=== PATIENT | female | born 1980 | race Caucasian/White ===

== ENCOUNTER 2017-06-03 09:44 | Emergency (ER) | payer SELFPAY ==
[2017-06-03 09:54] VITALS: TEMP 98.4
[2017-06-03] MEDS ORDERED: INSULIN DETEMIR 100 UNITS/ML PEN SUBCU ONE (10:03)
[2017-06-03] MEDS ORDERED: SODIUM CHLORIDE 0.9% 1000ML 1,000 ML IVS ONE (10:50)
[2017-06-03] MEDS ORDERED: INSULIN, REG.(HUMAN) 100 U/ML VIAL IV ONE (10:50)
--- NOTE | 2017-06-03 13:27 | ED.PDOC ---
History of Present Illness - General Chief Complaint: Diabetic Complaint Stated Complaint: Elevated blood sugar Time Seen by Provider: 06/03/17 09:57 Source: patient Exam Limitations: no limitations - History of Present Illness Initial Comments: The patient is a 36-year-old female presenting to the emergency room secondary to hyperglycemia and symptoms of generalized fatigue and myalgias as well as some mild nausea related to it. She has been increasing her insulin by her insulin pump over the last couple of days to help compensate for the hyperglycemia. Hyperglycemia is most likely due to a steroid injection that she received in her left shoulder on Monday. She has not been having any symptoms of any specific illness otherwise. Timing/Duration: unsure Severity: moderate Improving Factors: nothing Worsening Factors: nothing Associated Symptoms: denies symptoms Allergies/Adverse Reactions: Allergies Phenytoin [From Dilantin] Allergy (Verified 04/26/15 17:32) Rash Valproic Acid [From Depakote] Adverse Reaction (Verified 06/03/17 09:55) Other Causes alopecia Home Medications: Ambulatory Orders Insulin Infusion Pump IV DAILY 12/19/14 Lamotrigine [Lamictal] 100 mg PO DAILY 12/19/14 Gabapentin [Neurontin] 300 mg PO TID 06/03/17 Insulin Glargine [Toujeo Solostar] 20 unit SC DAILY #1 inj 06/03/17 Review of Systems - Review of Systems Constitutional: States: malaise EENTM: States: no symptoms reported Respiratory: States: no symptoms reported Cardiology: States: no symptoms reported Gastrointestinal/Abdominal: States: nausea. Denies: vomiting Genitourinary: States: no symptoms reported Musculoskeletal: States: no symptoms reported Skin: States: no symptoms reported Neurological: States: no symptoms reported Endocrine: States: increased thirst All other Systems: No Change from Baseline Past Medical History (General) - Patient Medical History Hx Seizures: Yes Hx Stroke: Yes - 2016 Hx Dementia: No Hx Asthma: No Hx of COPD: No Hx Cardiac Disorders: No Hx Congestive Heart Failure: No Hx Pacemaker: No Hx Hypertension: No Hx Thyroid Disease: No Hx Diabetes: Yes Hx Gastroesophageal Reflux: No Hx Renal Disease: No Hx Cancer: No Hx of HIV: No Hx Hepatitis C: No Hx MRSA: No Surgical History: other - Vaccination History Hx Tetanus, Diphtheria Vaccination: No Hx Influenza Vaccination: Yes - 2016 Hx Pneumococcal Vaccination: No - Social History Hx Tobacco Use: Yes Hx Chewing Tobacco Use: No Hx Alcohol Use: Yes - WHISKEY WEEKLY Hx Substance Use: No Hx Substance Use Treatment: No Hx Depression: Yes Hx Physical Abuse: No Hx Emotional Abuse: No Hx Suspected Abuse: No - Female History Patient is a Female of Child Bearing Age (10 -59 yrs old): Yes Patient : No Family Medical History - Family History Mother Family History: No Known Living Status: Still Living Physical Exam - Physical Exam General Appearance: Alert, Anxious, No apparent distress Eye Exam: bilateral normal Ears, Nose, Throat: hearing grossly normal, normal ENT inspection, normal pharynx Neck: non-tender, full range of motion, supple Respiratory: lungs clear, normal breath sounds, no respiratory distress, no accessory muscle use Cardiovascular/Chest: normal peripheral pulses, regular rate, rhythm, no edema Peripheral Pulses: radial,right: 2+, radial,left: 2+, dorsalis pedis,right: 2+, dorsalis pedis,left: 2+ Gastrointestinal/Abdominal: non tender, soft Rectal Exam: deferred Back Exam: normal inspection, no CVA tenderness, no vertebral tenderness Extremity: normal range of motion, non-tender, normal inspection, no pedal edema , normal capillary refill Neurologic: lacquer sizer II-XII nml as tested, alert, normal mood/affect, oriented x 3 Skin Exam: normal color Comments: Vital Signs - 24 hr 06/03/17 09:47 Temperature 98.4 F Pulse Rate [ 109 H Left Radial] Respiratory 20 Rate Blood Pressure 121/82 [Left Arm] O2 Sat by Pulse 98 Oximetry Progress - Progress Progress: 06/03/17 13:28 the patient is a 36-year-old female presenting to emergency room secondary to hyperglycemia with her insulin dependent diabetes. This is likely related to a steroid injection she received earlier in the week as is the leukocytosis noted on lab work. The patient received a liter of IV fluids. She does not appear to be in DKA. The patient will be written for Toujeo to start at 20 units each morning. she will also likely need to increase her bolus dosing by approximately 50% at least for the next few days. The longer- term insulin can be gradually decreased over the coming week to couple of weeks as her blood sugars returned to normal. she needs to keep herself well- hydrated. No clinical evidence of any infection found at this time. She should follow-up with her primary care doctor in a couple of days for reevaluation. - Results/Orders Results/Orders: 06/03/17 11:13 Flu A+B (PCR) [INFLUENZA A & B BY PCR] Stat negative. Laboratory Results - last 24 hr 06/03/17 06/03/17 06/03/17 10:15 10:15 10:15 WBC 20.7 H* RBC 5.07 Hgb 16.2 H Hct 48.9 H MCV 96.4 MCH 31.9 H MCHC 33.2 RDW 13.1 Plt Count 277 MPV 9.1 Absolute Neuts (auto) Not Reportable Absolute Lymphs (auto) Not Reportable Absolute Monos (auto) Not Reportable Absolute Eos (auto) Not Reportable Neutrophils % Not Reportable Neutrophils % (Manual) 75.0 Lymphocytes % Not Reportable Lymphocytes % (Manual) 12.0 Monocytes % Not Reportable Monocytes % (Manual) 8.0 Eosinophils % Not Reportable Basophils % Not Reportable Band Neutrophils 5.0 Sodium 134 L Potassium 5.1 H Chloride 97 L Carbon Dioxide 23 Anion Gap 19.1 H BUN 19 H Creatinine 1.00 BUN/Creatinine Ratio 19.0 POC Glucose > 400 H* Random Glucose 603 H* Serum Osmolality 299.4 H Calcium 9.1 Total Bilirubin 1.2 H AST 13 ALT 17 Alkaline Phosphatase 99 Serum Total Protein 6.9 Albumin 4.5 Globulin 2.4 Albumin/Globulin Ratio 1.9 Urine Color Urine Appearance Urine pH Ur Specific [place] Urine Protein Urine Glucose (UA) Urine Ketones Urine Blood Urine Nitrite Urine Bilirubin Urine Urobilinogen Ur Leukocyte Esterase Urine RBC Urine WBC Ur Epithelial Cells Urine Bacteria 06/03/17 06/03/17 06/03/17 10:20 12:20 13:20 WBC RBC Hgb Hct MCV MCH MCHC RDW Plt Count MPV Absolute Neuts (auto) Absolute Lymphs (auto) Absolute Monos (auto) Absolute Eos (auto) Neutrophils % Neutrophils % (Manual) Lymphocytes % Lymphocytes % (Manual) Monocytes % Monocytes % (Manual) Eosinophils % Basophils % Band Neutrophils Sodium Potassium Chloride Carbon Dioxide Anion Gap BUN Creatinine BUN/Creatinine Ratio POC Glucose 361 H 366 H Random Glucose Serum Osmolality Calcium Total Bilirubin AST ALT Alkaline Phosphatase Serum Total Protein Albumin Globulin Albumin/Globulin Ratio Urine Color Yellow Urine Appearance Clear Urine pH 6.0 Ur Specific [place] 1.010 Urine Protein Negative Urine Glucose (UA) 500 H Urine Ketones 40 H Urine Blood Trace-lysed H Urine Nitrite Negative Urine Bilirubin Negative Urine Urobilinogen 0.2 Ur Leukocyte Esterase Negative Urine RBC 0-1 Urine WBC 0 Ur Epithelial Cells 1-3 Urine Bacteria 0 Departure - Departure Clinical Impression: Hyperglycemia Disposition: Discharge to Home or Self Care Condition: Fair Departure Forms: ED Discharge - Pt. Copy, Patient Portal Self Enrollment Instructions: DI for Diabetes Type 1 -- Adult Diet: diabetic diet Activity: increase activity as tolerated Referrals: Víctor Harper MD [Primary Care Provider] - 1-5 Days Prescriptions: Insulin Glargine [Toujeo Solostar] 20 unit SC DAILY #1 inj Home Medications: Ambulatory Orders Insulin Infusion Pump IV DAILY 12/19/14 Lamotrigine [Lamictal] 100 mg PO DAILY 12/19/14 Gabapentin [Neurontin] 300 mg PO TID 06/03/17 Insulin Glargine [Toujeo Solostar] 20 unit SC DAILY #1 inj 06/03/17 Additional Instructions: the patient is a 36-year-old female presenting to emergency room secondary to hyperglycemia with her insulin dependent diabetes. This is likely related to a steroid injection she received earlier in the week as is the leukocytosis noted on lab work. The patient received a liter of IV fluids. She does not appear to be in DKA. The patient will be written for Toujeo to start at 20 units each morning. she will also likely need to increase her bolus dosing by approximately 50% at least for the next few days. The longer- term insulin can be gradually decreased over the coming week to couple of weeks as her blood sugars returned to normal. she needs to keep herself well- hydrated. No clinical evidence of any infection found at this time. She should follow-up with her primary care doctor in a couple of days for reevaluation.
[2017-06-03 13:43] VITALS: BP 113/76; O2SAT 97
[2017-06-04] MEDS ORDERED: INSULIN, REG.(HUMAN) 100 U/ML VIAL ONE (11:16)
[2017-06-04] MEDS ORDERED: SODIUM CHL 0.9% 250ML (AVIVA) 250 ML IVPB ONE (11:16)
[2017-06-04] MEDS ORDERED: CALCIUM GLUCONATE INJ 1 GM/10 ML VIAL ONE ×2 (23:43)
== END 2017-06-03 13:43 | disposition home or self-care (01) ==
LOC: ER 09:44
DX: E11.65 Type 2 diabetes mellitus with hyperglycemia (principal); Z79.4 Long term (current) use of insulin; Z96.41 Presence of insulin pump (external) (internal); Z86.73 Personal history of transient ischemic attack (TIA), and cerebral infarction without residual deficits
CPT/HCPCS: 36415; 36416; 80053; 81001; 82948; 85025; 87502; J1815; J7030

== ENCOUNTER 2017-06-04 07:06 | Inpatient (IN) | payer SELFPAY ==
[2017-06-04] MEDS ORDERED: SODIUM CHLORIDE 0.9% 1000ML 2,000 ML IVS ONE (07:25)
[2017-06-04] MEDS ORDERED: PROMETHAZINE HCL INJ 12.5 MG in SODIUM CHLORIDE 0.9% 50ML 50 ML IVPB ONE (07:25)
[2017-06-04] MEDS ORDERED: INSULIN, REG.(HUMAN) 100 U/ML VIAL IV ONE (07:25)
--- NOTE | 2017-06-04 07:27 | ED.PDOC ---
History of Present Illness - General Chief Complaint: Diabetic Complaint Stated Complaint: Bodyaches, elevated BS, dry mouth Time Seen by Provider: 06/04/17 07:19 Source: patient Exam Limitations: no limitations - Additional Information: 36 year old known IDDM type 1 since age 11 presents with nausea vomiting weakness since Monday She was seen by her physician last week received a shot of steroids Seen here yesterday work up showed a WBC of 20 K rest of the labs were normal Leucocytosis was thougtto be due to the Steroid she received 2 days ago Today she returns as her symptoms are not any better - History of Present Illness Timing/Duration: 24 hours Severity: moderate Improving Factors: nothing Worsening Factors: nothing Associated Symptoms: denies symptoms, nausea/vomiting, weakness Allergies/Adverse Reactions: Allergies Phenytoin [From Dilantin] Allergy (Verified 06/04/17 07:21) Rash Valproic Acid [From Depakote] Adverse Reaction (Verified 06/04/17 07:21) Other Causes alopecia Home Medications: Ambulatory Orders Insulin Infusion Pump IV DAILY 12/19/14 Lamotrigine [Lamictal] 100 mg PO DAILY 12/19/14 Gabapentin [Neurontin] 300 mg PO TID 06/03/17 Insulin Glargine [Toujeo Solostar] 20 unit SC DAILY #1 inj 06/03/17 Review of Systems - Review of Systems Constitutional: States: see HPI EENTM: States: no symptoms reported Respiratory: States: no symptoms reported Cardiology: States: no symptoms reported Gastrointestinal/Abdominal: States: no symptoms reported, see HPI, nausea, vomiting Genitourinary: States: no symptoms reported Musculoskeletal: States: no symptoms reported Skin: States: no symptoms reported Neurological: States: no symptoms reported Endocrine: States: see HPI Hematologic/Lymphatic: States: no symptoms reported All other Systems: Reviewed and Negative Past Medical History (General) - Patient Medical History Hx Seizures: Yes Hx Stroke: Yes - 2016 Hx Dementia: No Hx Asthma: No Hx of COPD: No Hx Cardiac Disorders: No Hx Congestive Heart Failure: No Hx Pacemaker: No Hx Hypertension: No Hx Thyroid Disease: No Hx Diabetes: Yes Hx Gastroesophageal Reflux: No Hx Renal Disease: No Hx Cancer: No Hx of HIV: No Hx Hepatitis C: No Hx MRSA: No Surgical History: other - Vaccination History Hx Tetanus, Diphtheria Vaccination: No Hx Influenza Vaccination: Yes - 2017 Hx Pneumococcal Vaccination: No - Social History Hx Tobacco Use: Yes Hx Chewing Tobacco Use: No Hx Alcohol Use: Yes - WHISKEY WEEKLY Hx Substance Use: No Hx Substance Use Treatment: No Hx Depression: Yes Hx Physical Abuse: No Hx Emotional Abuse: No Hx Suspected Abuse: No - Female History Patient is a Female of Child Bearing Age (10 -59 yrs old): Yes Patient : No Family Medical History - Family History Mother Family History: No Known Living Status: Still Living Physical Exam - Physical Exam General Appearance: Alert, Comfortable, Lethargic Eye Exam: bilateral normal Ears, Nose, Throat: hearing grossly normal Neck: non-tender, full range of motion, supple Respiratory: chest non-tender, lungs clear, normal breath sounds Cardiovascular/Chest: normal peripheral pulses, regular rate, rhythm, no edema Peripheral Pulses: radial,right: 2+, radial,left: 2+, femoral,right: 2+, femoral ,left: 2+, popliteal,right: 2+, popliteal,left: 2+, dorsalis pedis,right: 2+, dorsalis pedis,left: 2+, posterior tibialis,right: 2+, posterior tibialis,left: 2+ Gastrointestinal/Abdominal: normal bowel sounds, non tender, soft Back Exam: normal inspection, no CVA tenderness Extremity: normal range of motion, non-tender, normal inspection Neurologic: electroencephalograph technologist II-XII nml as tested, no motor/sensory deficits, alert, normal mood/affect Skin Exam: normal color, cyanosis Lymphatic: no adenopathy Departure - Departure Clinical Impression: Alcohol abuse, Diabetes mellitus, Diabetes mellitus with ketoacidosis, Diabetic neuropathy Time of Disposition: 10:17 Disposition: Admit Patient Condition: Good Departure Forms: ED Discharge - Pt. Copy, Patient Portal Self Enrollment Instructions: DI for Diabetes Type 2 Referrals: Víctor Harper MD [Primary Care Provider] - 1-2 Weeks Home Medications: Ambulatory Orders Insulin Infusion Pump IV DAILY 12/19/14 Lamotrigine [Lamictal] 100 mg PO DAILY 12/19/14 Gabapentin [Neurontin] 300 mg PO TID 06/03/17 Insulin Glargine [Toujeo Solostar] 20 unit SC DAILY #1 inj 06/03/17 Decision To Admit - Decistion To Admit Decision to Admit Reason: Accidental Injury - DIABETIC KETOACIDOSIS Decision to Admit Date: 06/04/17 Decision to Admit Time: 10:26
[2017-06-04] MEDS ORDERED: SODIUM CHLORIDE 0.9% 50ML 50 ML ONE (07:49)
[2017-06-04] MEDS ORDERED: PROMETHAZINE HCL INJ 25 MG/ML VIAL ONE (07:49)
[2017-06-04] MEDS ORDERED: SODIUM CHLORIDE 0.9% 1000ML 1,000 ML IVS ONE ×3 (07:52→15:12)
--- NOTE | 2017-06-04 09:34 | RAD ---
Procedure: XR CHEST 1 VIEW Exam Date: 06/04/2017 9:08 AM WELL SERVICING RIG OPERATOR Ordering Provider: Kieran Jorge Clinical Indication: abnormal lab Comparison: None Findings: There is evidence of mild central vascular congestion. No pleural effusion or pneumothorax is present. Heart size is within normal limits. No acute osseous abnormality. Impression: Mild central vascular congestion. No aleksey pulmonary failure. Electronically signed by: Ruth Vaughn MD 06/04/2017 9:33 AM WELL SERVICING RIG OPERATOR
--- NOTE | 2017-06-04 11:02 | HP ---
SUPERVISING PHYSICIAN: Christiano Block MD CHIEF COMPLAINT: General malaise, dehydration, elevated blood sugar. HISTORY OF PRESENT ILLNESS: Ms. Dobbins is a 36-year-old, female patient who is an insulin dependent diabetic on a Humalog constant subcutaneous insulin pump since age 11. She presented to the Emergency Room today complaining of nausea, vomiting, and weakness since this last Monday. She was seen on 05/29/[address] Harper for pain in her shoulder, at which time she was given a Kenalog shot. She was seen in the Emergency Room yesterday for a similar workup and was found to have a white count of 20,000 with the rest of her labs being fairly normal, which was attributed to the steroids that she had received two days previously. She was started on Toujeo and discharged. She returns today with her symptoms worsening. Initial laboratory studies showed that her blood sugar was 559 with carbon dioxide 10, anion 27.8, moderate ketones and blood gas analysis showing pH 7.22, base excess -16.3. The patient was started on insulin drip, given 2 liters of fluid and now is going to be admitted to the Medical/Surgical Floor for treatment DKA. She was admitted in stable condition and DKA protocol was initiated. PAST MEDICAL HISTORY: 1. Type 1 diabetes mellitus on insulin pump since age 11. 2. Seizure disorder. 3. Depression. 4. Cerebrovascular accident in 2016 with lacunar infarct. PAST SURGICAL HISTORY: 1. Tonsillectomy and adenoidectomy. 2. times one. 3. Intrauterine device implantation. MEDICATIONS: 1. Lamictal 100 mg daily. 2. Neurontin 300 mg t.i.d. 3. Humalog constant subcutaneous insulin pump with basal approximately 35 units per 24. ALLERGIES: PHENYTOIN, VALPROIC ACID. FAMILY HISTORY: Positive for hypertension and congenital heard defects on her father's side. SOCIAL HISTORY: The patient is a nurse, currently not working. She is . She lives in [place]. She does smoke currently approximately one pack a day. She denies any alcohol or illicit drug use. HEALTHCARE PROVIDERS: 1. Plant Accountant, Dr. Montiel. 2. Primary care physician, Dr. Harper. REVIEW OF SYSTEMS: CONSTITUTIONAL: As noted in history of present illness, general malaise, weakness. HEENT: Denies nasal congestion, headaches, visual changes. RESPIRATORY: Denies shortness of breath, coughing, wheezing. CARDIOVASCULAR: Denies syncopal episodes, chest pain or palpitations. GASTROINTESTINAL: As noted in history of present illness, nausea and vomiting. GENITOURINARY: Denies dysuria, hematuria, but notes she does have polyuria. NEUROLOGIC: History of seizure disorder, bur last seizure was within the last year. No reported vision changes, syncopal episodes or other neurologic deficits. ENDOCRINE: As noted in history of present illness, type 1 diabetic with elevated blood sugars acutely on the insulin pump. LAST MENSTRUAL PERIOD: Current. PHYSICAL EXAMINATION: VITAL SIGNS: Initially in the Emergency Department, heart rate 120, afebrile 98.9, blood pressure 112/63, respirations 20, saturation 95% on room air. Admission weight was 82.7 kg. GENERAL: The patient does appear ill, but is well-nourished, but does look dehydrated, but is currently in no distress acutely. She is alert. HEENT: Tympanic membranes clear bilaterally. Oropharynx is pink, mucous membranes severely dry, cracked lips. No lesions. NECK: Supple, nontender with full range of motion. No jugular venous distention noted. CHEST: Lungs clear to auscultation bilaterally without any rhonchi, wheezes, or rales. CARDIOVASCULAR: Regular rate and rhythm with tachycardia noted on bedside monitor, but no appreciable murmurs, gallops, or rubs. ABDOMEN: Soft, nontender. No rebound tenderness. Positive bowel sounds. EXTREMITIES: There is no cyanosis, clubbing or edema. NEUROLOGIC: The patient is alert and oriented times three. Cranial nerves II- XII are grossly intact. There were no notable motor or sensory deficits. Facial features are symmetrical. Extraocular movements are within normal limits. There is no nystagmus noted. LABORATORY: CBC on admission showed white count 24,500, hemoglobin 13.7, hematocrit 42.5, platelet count 254,000. Differential did show a left shift with increased bands at 20. Blood gas analysis showed pH 7.22, PCO2 26, PO2 123 , bicarb 10.9, base excess -16.3, saturation 98% on room air. Chemistries initially on admission showed sodium and potassium within normal limits with initial sodium 135, glucose 559, anion gap 27.8, carbon dioxide 10, BUN 26, creatinine 1.25, calcium 7.9, lactic acid 3.5. Amylase elevated at 139, lipase elevated at 63, TSH normal at 0.42, initial phosphorous was normal at 4.0, magnesium 2.2. Liver functions showed elevated bilirubin 1.3 with direct 0.2 with indirect 1.1. Urinalysis showed 500 glucose, large amount of blood, small amount of bilirubin, ketones greater than 160 with microscopic showing 10 to 20 RBCs, 0 WBCs, 0 bacteria. HCG was negative. Ketones initially on admission were moderate. MICROBIOLOGY: Blood cultures pending. Influenza by PCR was negative on on previous admission to the Emergency Room. RADIOLOGY: Chest x-ray per radiologic interpretation showed mild central vascular congestion, but no aleksey pulmonary failure. CT of the abdomen and pelvis was completed with contrast and per radiologic interpretation showed no radiopaque gallstones noted, spleen was within normal limits, pancreas showed no focal masses or ductal dilation. Overall, there were no acute intraabdominal or intrapelvic processes noted. ASSESSMENT: 1. Diabetic ketoacidosis, uncertain etiology, with the patient having notable leukocytosis, but no obvious etiology or nidus of infection. 2. Metabolic acidosis secondary to diabetic ketoacidosis as noted by her initial arterial blood gases with pH 7.2 and elevated anion gap. 3. Leukocytosis with increased bands with blood cultures pending, possibly attributed to degree of stress response, previous Kenalog injection and possible infection, although no nidus of infection has been identified. 4. Severe dehydration secondary to #1. 5. History of seizure disorder with last seizure activity noted to be approximately one year previous. 6. Cerebrovascular accident with lacunar infract in 2016. 7. Depression. PLAN: The patient will be admitted to the Medical/Surgical Floor and started on diabetic ketoacidosis protocol and insulin drip. She will be given fluids as appropriate to her clinical presentation and output. We will place a Ortiz catheter to monitor her output closely. She will be on q.1h. blood sugars, q.4h. BMPs, and potassium levels q.2h. until she shows a stable potassium. We will continue to monitor telemetry and per protocol vital signs and neurologic checks. She will be on DVT prophylaxis as per protocol. She will be NPO until she is no longer in diabetic ketoacidosis and can be transitioned back to her insulin pump. We will anticipate length of stay to be two to three days. Until then, we will continue to monitor the patient closely and treat appropriately. #[id number] MTDD
[2017-06-04] MEDS ORDERED: SODIUM CHLORIDE 0.9% (FLUSH) 10 ML SYG IV PRN (11:10)
[2017-06-04] MEDS: INSULIN, REG.(HUMAN) 250 UNITS in SODIUM CHL 0.9% 250ML (AVIVA) 247.5 ML IVPB SCH ×4 (11:25→23:11)
[2017-06-04] MEDS ORDERED: PROMETHAZINE HCL INJ 25 MG in SODIUM CHLORIDE 0.9% 50ML 50 ML IVPB PRN (11:27)
[2017-06-04] MEDS ORDERED: ONDANSETRON INJ 4 MG/2 ML VIAL IV PRN (11:28)
[2017-06-04] MEDS ORDERED: IV SET AND CAP CHANGE INJ INJ SCH (11:30)
--- NOTE | 2017-06-04 11:41 | PCM.CORE ---
Physician DVT/VTE - Nurse DVT Assessment & Total Each Risk Factor Represents 3 Points: Medical PT with Hx of [place], CHF, Severe infection/sepsis Each Risk Factor Represents 1 Point: Medical PT at Bed Rest DVT Assessment Score: 4 - 5 or more Very High Risk Treatments: Early Ambulation *, Sequential Compression Device Pharmacological: Enoxaparin 40mg SQ Daily
--- NOTE | 2017-06-04 12:24 | CT ---
Procedure: CT ABDOMEN PELVIS WITH IV CONTRAST Exam Date: 06/04/2017 11:33 AM ACOUSTICAL TILE DRILL PRESS OPERATOR Ordering Provider: Lincoln Cortes Clinical Indication: DKA, Leukocytosis elevated amylase Comparison: None TECHNIQUE: The abdomen and pelvis were scanned utilizing a multidetector helical scanner from the diaphragm to the lesser trochanter . Low osmolar IV contrast was also given. Coronal and sagittal reformations were obtained. This exam was performed according to our departmental dose-optimization program which includes automated exposure control, adjustment of the mA and/or kV according to patient size and/or use of iterative reconstruction technique. DISCUSSION: LOWER THORAX: Normal. HEPATOBILIARY: There is mild but diffuse hepatic steatosis. No radiopaque gallstone. SPLEEN: No splenomegaly. PANCREAS: No focal masses or ductal dilatation. ADRENALS: No adrenal nodules. KIDNEYS/URETERS: No hydronephrosis, stones, or solid mass lesions. PELVIC ORGANS/BLADDER: IUD seen within the endometrial canal. A 3.5 cm left adnexal cyst is present. This is within the range of normal for patient's reported age.. PERITONEUM / RETROPERITONEUM: No free air or fluid. LYMPH NODES: No lymphadenopathy. VESSELS: Unremarkable. GI TRACT: No distention or wall thickening. BONES AND SOFT TISSUES: No acute abnormality. IMPRESSION: No acute intra-abdominal or intrapelvic process. Electronically signed by: Ruth Vaughn MD 06/04/2017 12:22 PM ACOUSTICAL TILE DRILL PRESS OPERATOR
[2017-06-04] MEDS: ENOXAPARIN SODIUM 40 MG/0.4 ML SYG SUBCU SCH (12:46)
[2017-06-04] MEDS ORDERED: METOCLOPRAMIDE HCL INJ 10 MG/2 ML VIAL IV ONE (13:25)
[2017-06-04] MEDS ORDERED: KCL 20 MEQ/NS 1,000 ML IVS PRN (13:30)
[2017-06-04] MEDS ORDERED: SODIUM CHL 0.9% 100ML MINI-BAG 100 ML IVPB ONE (14:24)
[2017-06-04] MEDS: cefTRIAXone SODIUM 2 GM in SODIUM CHL 0.9% 100ML MINI-BAG 100 ML IVPB SCH (14:30)
[2017-06-04] MEDS ORDERED: SODIUM CHLORIDE 0.9% 1000ML 1,000 ML ONE (14:57)
[2017-06-04] MEDS: GABAPENTIN 300 MG CAP PO SCH ×2 (15:56→21:02)
[2017-06-04] MEDS ORDERED: [UNRECOGNIZED DRUG - OTHER] IVS ONE (16:19)
[2017-06-04] MEDS ORDERED: KCL IVS ONE (16:19)
[2017-06-04] MEDS: KCL 20MEQ/D5 1/2NS 1,000 ML IVS PRN ×2 (16:24→20:59)
[2017-06-04] MEDS ORDERED: SODIUM CHLORIDE 0.45% 1000ML 1,000 ML IVS ONE (19:17)
[2017-06-04] MEDS ORDERED: SODIUM CHL 0.9% 250ML (AVIVA) 250 ML IVPB ONE (23:03)
[2017-06-04] MEDS ORDERED: INSULIN, REG.(HUMAN) 100 U/ML VIAL ONE (23:04)
[2017-06-04] MEDS ORDERED: SODIUM CHLORIDE 0.9% 500ML 500 ML IVS ONE ×2 (23:35→23:36)
[2017-06-04] MEDS ORDERED: CALCIUM GLUCONATE INJ 2 GM in SODIUM CHLORIDE 0.9% 100ML 100 ML IVPB ONE (23:35)
[2017-06-04] MEDS ORDERED: CALCIUM GLUCONATE INJ 1 GM/10 ML VIAL IV ONE (23:35)
[2017-06-04] MEDS ORDERED: SODIUM CHLORIDE 0.9% 100ML 100 ML IVPB ONE (23:53)
[2017-06-05] MEDS: KCL 20MEQ/D5 1/2NS 1,000 ML IVS PRN ×3 (01:00→12:09)
[2017-06-05] MEDS ORDERED: SODIUM CHL 0.9% 100ML MINI-BAG 100 ML IVPB ONE (02:12)
[2017-06-05] MEDS: cefTRIAXone SODIUM 2 GM in SODIUM CHL 0.9% 100ML MINI-BAG 100 ML IVPB SCH (02:16)
[2017-06-05] MEDS: GABAPENTIN 300 MG CAP PO SCH ×3 (09:25→20:33)
[2017-06-05] MEDS: ENOXAPARIN SODIUM 40 MG/0.4 ML SYG SUBCU SCH (09:25)
[2017-06-05] MEDS: lamoTRIgine 100 MG TAB PO SCH ×2 (09:25→09:26)
[2017-06-05] MEDS ORDERED: SODIUM CHL 0.9% 250ML (AVIVA) 250 ML IVPB ONE (10:28)
[2017-06-05] MEDS ORDERED: INSULIN, REG.(HUMAN) 100 U/ML VIAL ONE (10:28)
[2017-06-05] MEDS: INSULIN, REG.(HUMAN) 250 UNITS in SODIUM CHL 0.9% 250ML (AVIVA) 247.5 ML IVPB SCH ×2 (10:36)
[2017-06-05] MEDS ORDERED: ACETAMINOPHEN 325 MG TAB PO PRN (11:34)
[2017-06-05] MEDS ORDERED: KCL 40 MEQ/D5 1/2NS 1,000 ML IVS PRN (17:02)
[2017-06-05] MEDS ORDERED: KCL 40 MEQ/D5 1/2NS 1,000 ML IVS ONE (17:05)
[2017-06-05] MEDS ORDERED: INSULIN LISPRO 100 UNITS/ML PEN SUBCU ONE ×5 (17:17→20:34)
--- NOTE | 2017-06-05 17:40 | PN ---
DATE: 06/05/17 SUPERVISING PHYSICIAN: Chris De León M.D. SUBJECTIVE: The patient notes that she feels much better this morning. She has had good output. She has tolerated the treatment for DKA and has shown to have responded well to treatment. She has had no nausea or vomiting or diarrhea. OBJECTIVE: VITAL SIGNS: Temperature 97.1, pulse 89, blood pressure 99/60, respirations 16, satting 95% on room air. Weight is 82.7 kg. I's and O's show a negative balance of 452 with 1840 in, 2300 out. She has had a total of 9689 in since admission with 4935 out with a positive balance of 5754 since admission. CHEST: Lungs were clear to auscultation. HEART: Regular rate and rhythm. ABDOMEN: Soft, non-tender. Positive bowel sounds. EXTREMITIES: No clubbing, cyanosis or edema. NEUROLOGIC: She is alert and oriented times three. LABORATORY: BNPs have been fairly stable. Potassium has been between 4.8 and 3.8. Blood sugars after starting insulin drip and once the patient's blood sugars dropped below 200 and started on D5 have been between 144 to 222. Serum osmolality was 300 when she came in and it is currently 279. Magnesium is 1.9, phosphorus was low at 1.5 with lactic acid showing initially 3.5 and after fluid initiation on DKA protocol it was down to 1.1. Calcium initially was 8.0 prior to treatment, it dropped to 7.2. She was given 2 grams of calcium gluconate and it is currently 8.0. Sodium has now been between 135 and 138. Hemoglobin A1c was 7.1. Amylase and lipase today showed normal amylase at 77, lipase was 20. Ketones at 6:00 this morning she had a negative ketone and she has had 2 additional negative ketones since. CBC showed white count initially of 24,500, after initiation of treatment it was down to 17,400 with hemoglobin 12, hematocrit 36.1, platelet count 220,000. Differential shows improvement and no longer shows a left shift, and 0% bands. Urinalysis today showed to be within normal limits. MICROBIOLOGY: Blood cultures remain negative. Urine culture is pending. RADIOLOGY: There are no additional radiographic studies. ASSESSMENT: 1. Diabetic ketoacidosis likely etiology secondary to recent steroid injection with Kenalog with no nidus of infection noted with the patient having initial leukocytosis showing improvement after initiation of DKA protocol as well as short term antibiotics. 2. Metabolic acidosis secondary to diabetic ketoacidosis as noted by her initial arterial blood gas of 7.2 and elevated anion gap, and low CO2. 3. Leukocytosis with increased bands with blood cultures currently being negative felt to be secondary to a stress response along with exacerbation from a recent Kenalog injection with no evidence of any infectious process. 4. Severe dehydration secondary to #1, improved with treatment. 5. History of seizure disorder with last seizure activity noted to be approximately one year previously. 6. Previous cerebrovascular accident with lacunar infract in 2016. 7. Depression. PLAN: The patient is responding well to DKA protocol treatment. She has been transitioned to D5W with 20 of potassium and is maintaining good electrolytes. At this point, will plan to transition her to subcue insulin with her insulin pump in efforts to stop her insulin drip once she shows to be stable. She has been started on a clear liquid diet and will be advanced to an 1800 calorie ADA this afternoon, and once she shows to be stable with no nausea or vomiting and maintaining blood sugars with subcue insulin, we will stop the DKA protocol and continue with a.c. and h.s. blood sugars with her utilizing her insulin basal rate and boluses per our sliding scale. Until then will continue to monitor and treat appropriately. #[id number] [facility]
[2017-06-05] MEDS ORDERED: KCL 20MEQ/0.45% NS 1,000 ML IVS ONE (19:20)
[2017-06-05] MEDS: KCL 20MEQ/0.45% NS 1,000 ML IVS PRN (19:53)
[2017-06-05] MEDS ORDERED: lamoTRIgine 100 MG TAB PO SCH (21:00)
[2017-06-06] MEDS: KCL 20MEQ/0.45% NS 1,000 ML IVS PRN (01:26)
[2017-06-06 06:42] VITALS: O2SAT 96
[2017-06-06] MEDS ORDERED: INSULIN LISPRO 100 UNITS/ML PEN SUBCU ONE ×2 (08:01→18:24)
[2017-06-06] MEDS: ENOXAPARIN SODIUM 40 MG/0.4 ML SYG SUBCU SCH (09:10)
[2017-06-06] MEDS: GABAPENTIN 300 MG CAP PO SCH (09:10)
[2017-06-06 10:55] VITALS: BP 113/76; TEMP 98.9
[2017-06-06] MEDS ORDERED: INSULIN LISPRO SC SCH (11:30)
--- NOTE | 2017-06-07 10:35 | DS ---
SUPERVISING PHYSICIAN: Chris De León MD DISCHARGE DIAGNOSIS: 1. Diabetic ketoacidosis, secondary to recent steroid injection with Kenalog with no identification of the infectious source with the patient having initial leukocytosis, but showing improvement and returning to baseline and felt to be secondary to dehydration. 2. Metabolic acidosis secondary to diabetic ketoacidosis as noted by her initial arterial blood gas of 7.2 and elevated anion gap, and low CO2 on admission, showing response to treatment after diabetic ketoacidosis protocol with the patient returning to a normal baseline on her insulin pump prior to discharge. 3. Leukocytosis with increased bands initially on admission with blood cultures being negative at time of discharge, felt to be secondary to a stress response along with exacerbation from a recent Kenalog injection with no evidence of any infectious process. 4. Severe dehydration secondary to #1, improved with treatment. 5. History of seizure disorder with last seizure activity noted to be approximately one year previously. 6. Previous cerebrovascular accident with lacunar infract in 2016. 7. Depression. REASON FOR HOSPITALIZATION: Ms. Dobbins is a 36-year-old, female patient who is an insulin dependent diabetic on a Humalog constant subcutaneous insulin pump since age 11. She presented to the Emergency Room on 06/04/17 complaining of nausea, vomiting, and weakness since the Monday prior to admission. She was seen on 05/29/[address] Harper for pain in her shoulder, at which time she was given a Kenalog shot. She was seen in the Emergency Room on 06/03/17 for symptoms of nausea, vomiting and elevated blood sugar and was found to have a white count of 20,000, which was attributed to the steroids that she had received the day previously. She then returned with symptoms worsening and initial laboratory studies showed that her blood sugar was 559 with carbon dioxide 10, anion 27.8, moderate ketones and blood gas analysis showing pH 7.22, base excess -16.3. The patient was started on insulin drip, given 2 liters of fluid and admitted to the Medical/Surgical Floor for initiation of DKA treatment per protocol. She was admitted in stable condition. LABORATORY: Initial white count was 24,500. At discharge, it was 12,300. Hemoglobin and hematocrit were stable and at discharge were 13.0 and 39.1 with platelet count 217,000. Differential showed initially a left shift with elevated bands of 20 and prior to discharge, there was no left shift and no bands. Blood gas analysis on admission showed pH 7.22 with PCO2 26, PO2 123, bicarb 10, base excess of -16.3, saturation 98% on room air. Initial chemistries in the Emergency Department showed sodium 135, glucose 559, osmolality 300, carbon dioxide 10, potassium 4.8, creatinine 1.25, BUN 26. Amylase and lipase were elevated at 139 amylase and lipase 63. TSH was normal at 0.42. Hemoglobin A1c was 7.1. Lactic acid on admission was elevated at 3.5. After fluids after 6 hours, it was down to 1.1. Phosphorous initially 4.0 and went down to 1.5 and prior to discharge had come up to 2.1. Magnesium initially was 2.2 and at discharge was 1.7. Blood sugars showed good response to DKA protocol with insulin drip and she was able to be transitioned to subcutaneous insulin with her pump with blood sugars running between 124 and 176 prior to discharge. Ketones on admission were moderate. On 06/05/17 at 6 AM, she had produced negative ketones and remained negative for 24 hours prior to discharge. Urine on admission showed 500 glucose, 160 ketones, large amount of blood, small amount of bilirubin with microscopic showing 10 to 20 RBCs, 0 WBCs, 0 bacteria. After Ortiz catheter was placed, urine was within normal limits. MICROBIOLOGY: Urine culture showed no growth. Blood cultures showed no growth at 24 hours. RADIOLOGY: She initially had a chest x-ray in the Emergency Department showed mild vascular congestion and no aleksey pulmonary failure. She also had an abdominopelvic CT with contrast and per radiologic interpretation, there was no acute intraabdominal or intrapelvic processes noted. HOSPITAL COURSE: Ms. Dobbins was admitted on 06/04/17 for diabetic ketoacidosis. She was initiated on DKA protocol. She responded well to therapy with fluids, well over 7 liters, before she was no longer producing ketones. She was transitioned from IV insulin drip to her subcutaneous continuous pump and was showing stable blood sugars. She was no longer having any pain or discomfort and was clinically stable and doing much better. It was felt that she was stable enough to be discharged to followup in the outpatient setting. PLAN: Ms. Dobbins was discharged on 06/06/17 with instructions to followup with Dr. Harper in 7 to 10 days or sooner if needed, as well as Dr. Montiel, her raftsman, within 7 days or sooner. She was to call and make appointments for both. She was to resume her home medications as previous. She was encouraged to push fluids to prevent dehydration and she was told to return to the hospital or call Dr. Harper's for any concerning symptoms. No new medications were administered at discharge. Activities were to increase as tolerated. Diet was diabetic diet as tolerated. Condition on discharge was stable and improved. [facility][id number] [facility]
== END 2017-06-06 11:18 | disposition home or self-care (01) | DRG 639 ==
LOC: ER 07:06 → MS 11:01
PROVIDERS: ADMIT Nurse Practitioner Family; ATTEND Nurse Practitioner Family
PROC: BW21YZZ Computerized Tomography (CT Scan) of Abdomen and Pelvis using Other Contrast (ICD-10-PCS; principal; 2017-06-04)
DX: E10.10 Type 1 diabetes mellitus with ketoacidosis without coma (principal); G40.909 Epilepsy, unspecified, not intractable, without status epilepticus; F17.210 Nicotine dependence, cigarettes, uncomplicated; F32.9 Major depressive disorder, single episode, unspecified; E86.0 Dehydration; E11.40 Type 2 diabetes mellitus with diabetic neuropathy, unspecified; D72.829 Elevated white blood cell count, unspecified; F10.10 Alcohol abuse, uncomplicated; E83.39 Other disorders of phosphorus metabolism; T38.0X5A Adverse effect of glucocorticoids and synthetic analogues, initial encounter; Y92.531 Health care provider office as the place of occurrence of the external cause; Z79.899 Other long term (current) drug therapy; Z96.41 Presence of insulin pump (external) (internal); Z86.73 Personal history of transient ischemic attack (TIA), and cerebral infarction without residual deficits; Z79.4 Long term (current) use of insulin; Z88.8 Allergy status to other drugs, medicaments and biological substances

== ENCOUNTER 2018-11-19 16:41 | Emergency (ER) | payer SELFPAY ==
[2018-11-19] MEDS ORDERED: KETOROLAC TROMETHAMINE INJ 30 MG/ML VIAL IM ONE (17:08)
--- NOTE | 2018-11-19 17:20 | ED.PDOC ---
History of Present Illness - General Chief Complaint: Lower Extremity Injury Time Seen by Provider: 11/19/18 17:18 Source: patient, family Exam Limitations: no limitations - History of Present Illness Initial Comments: Patient presents with left ankle pain. She states, " my sugar got low and it just broke. this is the second time this has happened." She denies falling and says that her ankle broke because of low blood sugar. Her mother is in the room and insists that the patient fell. No other complaints. She received morphine 5 mg IV in the ambulance. Timing/Duration: 1/2 hour Severity: moderate Improving Factors: rest Worsening Factors: movement Associated Symptoms: other - as in HPI Allergies/Adverse Reactions: Allergies Phenytoin [From Dilantin] Allergy (Verified 06/04/17 07:21) Rash Valproic Acid [From Depakote] Adverse Reaction (Verified 06/04/17 07:21) Other Causes alopecia Home Medications: Ambulatory Orders Insulin Infusion Pump IV DAILY 12/19/14 Lamotrigine [Lamictal] 100 mg PO BEDTIME 12/19/14 Gabapentin [Neurontin] 300 mg PO TID 06/03/17 Insulin Lispro (Human) [Humalog] 0 unit SC ACHS PRN 06/05/17 Acetaminophen W/ Codeine [Tylenol W/ CODEINE #3] 1 ea PO Q4HR PRN #30 11/19/18 Aspirin [Aspirin EC] 81 mg PO DAILY 11/19/18 Atorvastatin Calcium [Lipitor] 20 mg PO BEDTIME 11/19/18 Estradiol 2 mg PO DAILY 11/19/18 Meloxicam 15 mg PO BEDTIME 11/19/18 Review of Systems - Review of Systems Constitutional: States: no symptoms reported EENTM: States: no symptoms reported Respiratory: States: no symptoms reported Cardiology: States: no symptoms reported Gastrointestinal/Abdominal: States: no symptoms reported Genitourinary: States: no symptoms reported Musculoskeletal: States: see HPI Skin: States: no symptoms reported Neurological: States: no symptoms reported Endocrine: States: no symptoms reported Hematologic/Lymphatic: States: no symptoms reported Past Medical History (General) - Patient Medical History Hx Seizures: Yes Hx Stroke: Yes - 2014 Hx Dementia: No Hx Asthma: No Hx of COPD: No Hx Cardiac Disorders: No Hx Congestive Heart Failure: No Hx Pacemaker: No Hx Hypertension: No Hx Thyroid Disease: No Hx Diabetes: Yes - insulin pump type 1 Hx Gastroesophageal Reflux: No Hx Renal Disease: No Hx Cancer: No Hx of HIV: No Hx Hepatitis C: No Hx MRSA: No - Vaccination History Hx Tetanus, Diphtheria Vaccination: No Hx Influenza Vaccination: Yes - 2017 Hx Pneumococcal Vaccination: No - Social History Hx Tobacco Use: Yes Hx Chewing Tobacco Use: No Hx Alcohol Use: Yes - WHISKEY WEEKLY Hx Substance Use: No Hx Substance Use Treatment: No Hx Depression: Yes Hx Physical Abuse: No Hx Emotional Abuse: No Hx Suspected Abuse: No - Female History Patient : No Family Medical History - Family History Mother Family History: No Known Living Status: Still Living Physical Exam - Physical Exam General Appearance: Alert Respiratory: lungs clear, normal breath sounds Cardiovascular/Chest: normal peripheral pulses, regular rate, rhythm Gastrointestinal/Abdominal: normal bowel sounds, non tender, soft Extremity: other - TTP at left lateral malleolus. There is mild deformity laterally and edema. dorsal pedis pulses 2+. Full sensation throughout entire left ankle and foot. Patient can flex and entend left toes without problems. Progress - Progress Progress: 11/19/18 21:10 Laboratory Tests 11/19/18 11/19/18 17:23 18:28 POC Glucose 51 L 148 H D Initial ankle radiographs could not determine if there was a new fracture or if it was old. CT of the ankle showed a trimalleolar fracture with posterior displacement of the talus. CNRA was called in and the patient put under general anesthesia for reduction, due to the unstable nature of the fracture and the possibility of rapid compartment syndrome or loss of nerve or blood supply. Ankle was reduced with longitudinal traction. Repeat radiographs of the ankle did not show posterior displacement but there was some lateral displacement that was likely chronic from the first time she fractured it. Patient was given hydrocodone 10/325 po in the E.D. Sugar tong and posterior 90 degree splint placed. Ankle was stable at discharge. Dorsal pedis pulses 2+, full sensation throughout entire left foot, 5/5 strength to flexion and extension of the left toes, and capillary refill less than two seconds. Left foot was pink and warm u shagufta discharge. Patient said she had crutches at home. Given RX for Tylenol #3. Instructed to follow up with Dr. Kumar in 3 days. Care instructions given. E.R. warnings given. Questions were elicited and answered. Patient voiced understanding and agreement with the plan. Departure - Departure Clinical Impression: Trimalleolar fracture of ankle, closed Disposition: Discharge to Home or Self Care Condition: Good Departure Forms: ED Discharge - Pt. Copy, Patient Portal Self Enrollment Instructions: Ankle Fracture (DC) Diet: resume usual diet Activity: other - No weight bearing on the left foot. Referrals: Víctor Harper MD [Primary Care Provider] - 1-2 Weeks Prescriptions: Acetaminophen W/ Codeine [Tylenol W/ CODEINE #3] 1 ea PO Q4HR PRN #30 PRN Reason: Pain Home Medications: Ambulatory Orders Insulin Infusion Pump IV DAILY 12/19/14 Lamotrigine [Lamictal] 100 mg PO BEDTIME 12/19/14 Gabapentin [Neurontin] 300 mg PO TID 06/03/17 Insulin Lispro (Human) [Humalog] 0 unit SC ACHS PRN 06/05/17 Acetaminophen W/ Codeine [Tylenol W/ CODEINE #3] 1 ea PO Q4HR PRN #30 11/19/18 Aspirin [Aspirin EC] 81 mg PO DAILY 11/19/18 Atorvastatin Calcium [Lipitor] 20 mg PO BEDTIME 11/19/18 Estradiol 2 mg PO DAILY 11/19/18 Meloxicam 15 mg PO BEDTIME 11/19/18 Additional Instructions: Follow up with Dr. Kumar on Monday. Do not bear weight on the left leg. Return to the E.R. immediately for increased pain, paleness of the left foot, or loss of sensation in the left foot.
--- NOTE | 2018-11-19 17:33 | RAD ---
EXAM DESCRIPTION: Ankle,Left 3 Views CLINICAL HISTORY: fall COMPARISON: September 08, 2010 FINDINGS: Three x-ray views of the left ankle were submitted. There is deformity of the distal tibia compatible with an old fracture. Deformity of the medial and lateral malleolus could be related to a superimposed acute fracture. Correlation with a CT recommended. Abnormal alignment/dislocation of the talo tibial joint of unknown chronicity. There is soft tissue swelling. IMPRESSION: Deformity of the left ankle could be related to an old and superimposed acute fracture/dislocation. Correlation with a CT recommended for further evaluation. Electronically signed by: Wade Wynne MD 11/19/2018 5:31 PM CDT
--- NOTE | 2018-11-19 17:34 | RAD ---
EXAM DESCRIPTION: Knee,Left 2 or More Views CLINICAL HISTORY: fall ankle injury COMPARISON: None FINDINGS: Two x-ray views of the left knee were submitted. There is no acute fracture or dislocation. There is no radiopaque foreign body material. IMPRESSION: No acute fracture or dislocation. Electronically signed by: Wade Wynne MD 11/19/2018 5:32 PM CDT
--- NOTE | 2018-11-19 18:52 | CT ---
EXAM DESCRIPTION: CT Lower Extremity CLINICAL HISTORY: 38 years Female ankle fracture TECHNIQUE: Noncontrast CT scan of the left ankle was performed with axial images acquired. Coronal and sagittal reformatted images also provided. This CT exam was performed according to our departmental dose-optimization program, which includes one or more of the following dose reduction techniques: automated exposure control, adjustment of the mA and/or kV according to patient size, and/or use of iterative reconstruction technique. COMPARISON: No prior exams provided for comparison. FINDINGS: There is an acute, comminuted, tri-malleolar left ankle fracture. The talus is posteriorly dislocated relative to the majority of the tibial plafond. The medial and posterior malleolar fracture fragments continue to align anatomically with the talus. No visualized talar, calcaneal, or midfoot fracture. No other joint subluxation or dislocation. There are healed extra-articular fractures of the distal tibia and fibula. Trace subcutaneous gas lateral to the fibula without definite laceration, possibly arising from the disrupted ankle joint. No radiodense foreign body. Extensive soft tissue hemorrhage about the left ankle. No visualized retracted tendon tear. IMPRESSION: Acute, comminuted, dislocated, tri-malleolar left ankle fracture. Trace soft tissue gas may be related to the disrupted ankle joint, however correlation with physical exam recommended. Electronically signed by: Penny Bennett MD 11/19/2018 6:50 PM CDT
[2018-11-19] MEDS ORDERED: PROPOFOL 200 MG/20 ML VIAL IV ONE (19:00)
[2018-11-19] MEDS ORDERED: HYDROcodone 10MG/APAP 325MG 1 EA TAB PO ONE (19:00)
[2018-11-19] MEDS ORDERED: KETAMINE HCL 100 MG/ML VIAL IV ONE (19:00)
[2018-11-19] MEDS ORDERED: LIDOCAINE 1% 10 ML VIAL INJ ONE (19:00)
[2018-11-19] MEDS ORDERED: SODIUM CHLORIDE 0.9% 1000ML 1,000 ML IVS ONE (19:20)
[2018-11-19] MEDS ORDERED: MIDAZOLAM INJ 5 MG/5 ML VIAL ONE (19:30)
[2018-11-19] MEDS ORDERED: fentaNYL CITRATE INJ 50 MCG/ML AMP ONE (19:30)
[2018-11-19] MEDS ORDERED: fentaNYL CITRATE INJ 50 MCG/ML AMP IV ONE (19:33)
[2018-11-19] MEDS ORDERED: MIDAZOLAM INJ 5 MG/5 ML VIAL IV ONE (19:33)
--- NOTE | 2018-11-19 20:41 | RAD ---
EXAM DESCRIPTION: Ankle,Left 3 Views CLINICAL HISTORY: 38 years Female ,post reduction COMPARISON: 11/19/2018. TECHNIQUE: Left ankle, 3 view FINDINGS: Comminuted fracture of the distal tibia and fracture of the distal fibula again noted. There is persistent lateral displacement and eversion of the ankle.. Soft tissue swelling is present. Ankle effusion is noted. Deformity of the distal tibia may be related to previous fracture. IMPRESSION: Comminuted fracture of the distal tibia and fibula with persistent mild lateral displacement of the distal fracture fragments and inversion of the ankle Soft tissue swelling Deformity of the distal tibia may be related to previous fracture deformity from 2010. Electronically signed by: Hoda Whalen MD 11/19/2018 8:39 PM CDT
[2018-11-19 21:48] VITALS: BP 108/67; TEMP 97.5; O2SAT 98
== END 2018-11-19 21:36 | disposition home or self-care (01) ==
LOC: ER 16:41
DX: S82.852A Displaced trimalleolar fracture of left lower leg, initial encounter for closed fracture (principal); F32.9 Major depressive disorder, single episode, unspecified; E10.9 Type 1 diabetes mellitus without complications; R56.9 Unspecified convulsions; Z86.73 Personal history of transient ischemic attack (TIA), and cerebral infarction without residual deficits; Z87.891 Personal history of nicotine dependence; Z79.899 Other long term (current) drug therapy; Z79.4 Long term (current) use of insulin; Z79.82 Long term (current) use of aspirin; Z88.8 Allergy status to other drugs, medicaments and biological substances; X58.XXXA Exposure to other specified factors, initial encounter; Y92.9 Unspecified place or not applicable
CPT/HCPCS: 36416; 73560; 73610; 73700; 82948; J1885; J2250; J3010; J3490; J7030

== ENCOUNTER → 2018-11-22 | Outpatient (CLI) | payer OTHER ==
--- NOTE | 2018-11-22 09:33 | RAD ---
Findings: Number of images: Three Location: Left ankle Comparison November 19, 2018. Interval splinting of the left ankle fracture/dislocation. No interval healing. Redemonstrated comminuted fracture of the distal tibia and fibula with similar displacement and eversion. Osseous detail is obscured. No new fracture identified. IMPRESSION: Splinted left ankle fracture/dislocation with similar alignment. Electronically signed by: Aram Ross MD 11/22/2018 9:31 AM CDT
--- NOTE | 2018-11-22 13:08 | CT ---
EXAM DESCRIPTION: Lower Extremity CLINICAL HISTORY: 38 years Female, CLOSED FRACTURE OF LOWER END OF LEFT TIIA,, INITIAL ENCOUNTER COMPARISON: November 19, 2018 TECHNIQUE: This exam was performed according to our departmental dose-optimization program, which includes automated exposure control, adjustment of the mA and/or kV according to patient size and/or use of iterative reconstruction technique. Noncontrast imaging of the left leg and ankle mortise and hindfoot with MPR reformatted images. FINDINGS: CT of the left leg and hindfoot and midfoot is compared to examination three days earlier. The hindfoot including the cocaine uterus and talus and articulation with the midfoot is in essentially normal alignment. Marked disruption of the ankle mortise and trimalleolar fracture is present with old healed oblique fracture of the distal tibia at the diametaphyseal region incidentally noted. Comminuted posterior malleolar fragment is in normal alignment to the posterior talar dome and contains approximately the posterior one third of the tibial articular surface. Small fragments within the stomach widened fracture line are present as well as at least one small intra-articular fragment at the anterior talar dome. Previously noted anterior displacement of the anterior tibial articular surface that bordered on a aleksey dislocation is partially reduced with the posterior lip of the intact tibial component abutting the anterior dome of the talus. Persistent marked subluxation but slight improvement is evident since study three days earlier. Comminuted medial malleolar fragment with slight distraction of the fracture and lateral displacement of the anteriorly subluxed talus within the ankle mortise estimated at approximately 1 cm is present. This alignment is improved on coronal imaging from three days earlier. Comminuted distal fibular fracture with lateral and posterior displacement of the distal fibular fragment is present with distal fibular fragment normally articulating with the lateral surface of the talus. The fibular shaft above the ankle mortise and the tibial shaft including the healed diametaphyseal fracture. Intact without additional fractures above the ankle. IMPRESSION: 1. Evolving alignment of trimalleolar fracture of the ankle with comminuted medial and lateral and posterior malleolar fragments. 2. Persistent lateral subluxation of the talus within the ankle mortise and posterior severe subluxation of the talus within the ankle mortise on the sagittal imaging, slightly improved from prior study. 3. The talocalcaneal articulation and the bony talus and calcaneus and midfoot are intact. 4. The distal fibular fragment in the medial malleolar fragment remain essentially normally aligned with the talus. Electronically signed by: Chris Rodney MD 11/22/2018 1:06 PM CDT
== END ==
LOC: RAD 07:57
PROVIDERS: ATTEND Orthopaedic Surgery
DX: S82.852A Displaced trimalleolar fracture of left lower leg, initial encounter for closed fracture (principal); S93.02XA Subluxation of left ankle joint, initial encounter

== ENCOUNTER 2018-12-11 05:22 | Day surgery (SDC) | payer OTHER, SELFPAY ==
--- NOTE | 2018-12-06 12:27 | RAD ---
EXAM DESCRIPTION: Chest,2 Views CLINICAL HISTORY: z01.811 preop COMPARISON: Chest radiograph dated June 04, 2017 TECHNIQUE: Frontal and lateral views of the chest FINDINGS: Cardiac silhouette shows normal heart size. Pulmonary vascularity is within normal limits. Lungs show no confluent infiltrate. No pleural effusion. No pneumothorax. No acute osseous abnormality. IMPRESSION: No acute cardiopulmonary process. Electronically signed by: Geovanny Patel MD 12/06/2018 12:25 PM CDT
[2018-12-11] MEDS ORDERED: LACTATED RINGERS 1,000 ML ONE (05:53)
[2018-12-11] MEDS ORDERED: ceFAZolin SODIUM 1 GM VIAL ONE (05:53)
[2018-12-11] MEDS ORDERED: SODIUM CHL 0.9% 100ML MINI-BAG 100 ML IVPB ONE (05:54)
[2018-12-11] MEDS ORDERED: BUPIVACAINE 0.5% 30 ML VIAL INJ ONE (06:49)
[2018-12-11] MEDS ORDERED: LACTATED RINGERS 1,000 ML IVS ONE (07:50)
[2018-12-11] MEDS ORDERED: MIDAZOLAM INJ 5 MG/5 ML VIAL ONE (07:59)
[2018-12-11] MEDS ORDERED: HYDROmorphone HCL INJ 2 MG/ML VIAL ONE (07:59)
[2018-12-11] MEDS ORDERED: ACETAMINOPHEN IV 1000MG 100 ML ONE (07:59)
[2018-12-11] MEDS ORDERED: KETAMINE HCL 100 MG/ML VIAL ONE (07:59)
[2018-12-11] MEDS ORDERED: VANCOMYCIN HCL INJ 1,000 MG VIAL IVPB ONE ×2 (08:23→08:44)
[2018-12-11] MEDS ORDERED: SODIUM CHLORIDE 0.9% 250ML 250 ML ONE (08:45)
[2018-12-11] MEDS ORDERED: BUPIVACAINE LIPOSOME 13.3 MG/ML VIAL INJ ONE (08:50)
[2018-12-11] MEDS: ceFAZolin SODIUM 1 GM VIAL ONE ×2 (08:56→11:04)
[2018-12-11] MEDS: VANCOMYCIN HCL INJ 1,000 MG VIAL IVPB ONE ×2 (08:57→11:04)
[2018-12-11] MEDS: BUPIVACAINE 0.5% 30 ML VIAL INJ ONE ×2 (08:57→10:53)
[2018-12-11] MEDS: BUPIVACAINE LIPOSOME 13.3 MG/ML VIAL INJ ONE ×2 (08:57→10:53)
[2018-12-11] MEDS ORDERED: ONDANSETRON ODT 8 MG TAB PO ONE (10:00)
[2018-12-11] MEDS ORDERED: PROPOFOL 200 MG/20 ML VIAL IV ONE (10:00)
[2018-12-11] MEDS ORDERED: METOCLOPRAMIDE HCL INJ 10 MG/2 ML VIAL IV ONE (10:00)
[2018-12-11] MEDS ORDERED: SODIUM CHLORIDE 0.9% 50 ML VIAL INJ ONE (10:00)
[2018-12-11] MEDS ORDERED: raNITIdine HCL INJ 25 MG/ML VIAL IV ONE (10:00)
[2018-12-11] MEDS ORDERED: BUPIVACAINE 0.25% INJ 30 ML VIAL INJ ONE (11:15)
[2018-12-11] MEDS ORDERED: ELECTROLYTE-A 1,000 ML IVS ONE (11:55)
[2018-12-11] MEDS ORDERED: INSULIN LISPRO 100 UNITS/ML PEN SUBCU ONE ×2 (12:13→12:21)
[2018-12-11] MEDS ORDERED: INSULIN PROTAMINE/LISPRO 75/25 100 UNITS/ML PEN SUBCU ONE (12:16)
[2018-12-11] MEDS: HYDROmorphone HCL INJ 2 MG/ML VIAL ONE ×3 (12:16→12:36)
[2018-12-11] MEDS ORDERED: KETOROLAC TROMETHAMINE INJ 30 MG/ML VIAL ONE (12:50)
--- NOTE | 2018-12-11 13:01 | RAD ---
EXAM DESCRIPTION: Ankle,Left 2 Views CLINICAL HISTORY: 38 years Female, POST OP COMPARISON: None. TECHNIQUE: 2 views of the left ankle. IMPRESSION: Status post screw-plate fixation traversing a lateral malleolar fracture. 2 orthopedic screws traverse the medial malleolus and an orthopedic screw traverses the posterior malleolus fracture. Fracture fragments are in near anatomic alignment. No evidence of hardware complication. External overlying cast obscures details of the underlying soft tissues. Electronically signed by: Edmundo Bruner MD 12/11/2018 12:59 PM CDT
[2018-12-11 14:24] VITALS: BP 113/68; TEMP 98.5; O2SAT 95
--- NOTE | 2018-12-11 16:40 | RAD ---
EXAM DESCRIPTION: Fluoroscopy Up to 1Hr CLINICAL HISTORY: 38 years Female, ORIF LEFT ANKLE COMPARISON: None. FINDINGS/IMPRESSION: Three fluoroscopic views of the left ankle demonstrate hardware fixation of the distal fibula and medial malleolus. Healing, persistent fracture lucency at the medial and lateral malleoli are seen. Electronically signed by: Bello Kessler DO 12/11/2018 4:38 PM CDT
--- NOTE | 2018-12-13 07:59 | OP ---
DATE OF PROCEDURE: 12/11/18 PREOPERATIVE DIAGNOSIS: 1. Trimalleolar ankle fracture. POSTOPERATIVE DIAGNOSIS: 1. Trimalleolar ankle fracture. PROCEDURE: 1. Open reduction internal fixation, left ankle. SURGEON: Ritchie Kumar MD SLATER APPRENTICE: Juan Cancino CST, SA-C ANESTHESIA: General anesthesia. COMPLICATIONS: None. FINDINGS: Comminuted trimalleolar ankle fracture with pre-existent deformity. INDICATION: Joceline has a history of a fall secondary to passing out during a hypoglycemic event. She had presented to the clinic and we noted she had a previous fall where she had a fracture that was not fixed. We discussed her current situation and after discussing the risks, benefits and alternatives to operative therapy, she gave informed consent. PROCEDURE: The patient was brought to the Operating Room and placed in the supine position. General anesthesia was induced and the patient's leg was sterilely prepped and draped. Following prepping and draping, an incision was made on the lateral border of the fibula. Following that, dissection was carried down to the fibula. There was a comminuted fracture and very minimal distal fragment, however, I was able to apply a plate to the lateral aspect with both locking and nonlocking screws. Attention was then focused on the medial malleolus and an incision was made directly over that. Two parallel screws were used to reapproximate the medial malleolus. A single cannulated screw passing from anterior to the posterior was used to approximate the posterior malleolar piece. The ankle was stressed under fluoroscopic imaging. The wounds were very thoroughly irrigated and closed with a combination of running and interrupted stitches. Sterile dressings were placed. A splint was placed. The patient was awoken from anesthesia and taken to Recovery. POSTOPERATIVE PLAN: She will be non-weightbearing for at least 6 weeks and we will follow her progress with routine x-rays. We will let her begin bearing weight when she has some healing. #[id number] [facility]
== END 2018-12-11 14:35 | disposition home or self-care (01) ==
LOC: AMB 05:22
PROVIDERS: ATTEND Orthopaedic Surgery
DX: S82.852A Displaced trimalleolar fracture of left lower leg, initial encounter for closed fracture (principal); F17.200 Nicotine dependence, unspecified, uncomplicated; Z88.8 Allergy status to other drugs, medicaments and biological substances; Z90.710 Acquired absence of both cervix and uterus; Z79.899 Other long term (current) drug therapy
CPT/HCPCS: 01480; 27822; 36415; 36416; 71046; 73600; 76000; 80053; 80307; 81001; 82948; 85025; 87070; 93005; A4216; C1713; J0690; J1170; J1815; J1885; J2250; J2765; J2780; J3370; J3490; J7050; J7120

== ENCOUNTER → 2019-01-21 | Outpatient (CLI) | payer SELFPAY ==
--- NOTE | 2019-01-21 09:38 | RAD ---
PROVIDED CLINICAL HISTORY/REASON FOR EXAM: CLOSED FX DISTAL TIBIA Findings/impression: Number of images: Three Location: Right ankle Comparison December 11, 2018. Lateral plate and screws transfix the healing lateral malleolar fracture. No hardware complication identified. There are three partially cannulated screws associated with the medial malleolar fracture with persistent fracture lucencies. Unchanged alignment. No new fracture identified. The talar dome is unremarkable. No focal soft tissue abnormality. Osteopenia. Electronically signed by: Aram Ross MD 01/21/2019 9:36 AM CDT
== END ==
LOC: RAD 08:24
PROVIDERS: ATTEND Orthopaedic Surgery
DX: S82.392D Other fracture of lower end of left tibia, subsequent encounter for closed fracture with routine healing (principal); M85.872 Other specified disorders of bone density and structure, left ankle and foot; Z98.890 Other specified postprocedural states

== ENCOUNTER → 2019-02-18 | Outpatient (CLI) | payer SELFPAY ==
--- NOTE | 2019-02-18 10:37 | RAD ---
EXAM DESCRIPTION: Ankle,Left 3 Views CLINICAL HISTORY: 38 years Female, OTHER FRACTURE OF LOWER END OF LEFT TIBIA COMPARISON: January 21, 2019 FINDINGS: Three views of the left ankle show postoperative changes without apparent hardware complication. Old healed posterior malleolar and lateral malleolar fractures are noted. There is an old nondisplaced, non or partially united medial malleolar fracture, stable from the prior exam. Mild lateral tibiotalar joint space narrowing. The talar dome is intact. No acute fracture or malalignment. IMPRESSION: Uncomplicated postoperative changes in the left ankle with old healed posterior and lateral malleolar fractures. Nondisplaced medial malleolar fracture remains non or partially united, stable from January 21, 2019. No new abnormality. Electronically signed by: Nick Linn MD 02/18/2019 10:36 AM CDT
== END ==
LOC: RAD 08:06
PROVIDERS: ATTEND Orthopaedic Surgery
DX: S82.392D Other fracture of lower end of left tibia, subsequent encounter for closed fracture with routine healing (principal); Z98.890 Other specified postprocedural states

== ENCOUNTER → 2019-03-07 | Outpatient (CLI) | payer SELFPAY ==
--- NOTE | 2019-03-07 12:51 | RAD ---
EXAM DESCRIPTION: Ankle,Left 3 Views CLINICAL HISTORY: 38 years, Female, CLOSED FRACTURE OF DISTAL TIBIA- LEFT COMPARISON: Previous x-ray images of the left ankle February 18, 2019 TECHNIQUE: AP/lateral/oblique of the left ankle FINDINGS: Orthopedic hardware is in place with screws through the medial malleolus and plate and screws in the distal fibula including the lateral malleolus. Ankle alignment appears normal. There is mild soft tissue swelling laterally. Deformity of the distal tibia consistent with a healed fracture. Nonunion of the medial malleolar fracture may be developing. No change in alignment compared to previous study February 18, 2019. Intact proximal metatarsals. Intact dome of the talus. Lateral view shows no evidence of fracture of the body of the talus or calcaneus. No calcaneal spurring is seen. Bones appear osteopenic with prominent trabecular pattern. IMPRESSION: Orthopedic hardware in the left ankle. Electronically signed by: Rigo Marcus MD 03/07/2019 12:49 PM CDT
== END ==
LOC: RAD 08:55
PROVIDERS: ATTEND Orthopaedic Surgery
DX: S82.392D Other fracture of lower end of left tibia, subsequent encounter for closed fracture with routine healing (principal); Z98.890 Other specified postprocedural states

== ENCOUNTER → 2019-03-29 | Outpatient (CLI) | payer SELFPAY ==
--- NOTE | 2019-03-29 09:20 | RAD ---
EXAM DESCRIPTION: Ankle,Left 3 Views CLINICAL HISTORY: 38 years, Female, Closed fracture distal tibia COMPARISON: March 07, 2019 TECHNIQUE: Three views left ankle FINDINGS: Three views left ankle demonstrate internally fixed fractures involving the distal fibula with sideplate in place as well as a healed fracture of the distal tibia with mature bridging callus formation involving the lateral cortex of the distal tibia at the diametaphyseal region and an AP screw internally fixing a healed posterior malleolar fracture. Medial malleolus is fixed with two screws extending through the medial malleolus into the distal tibia but residual lucency across the base of the medial malleolus consistent with incomplete bony union is suggested. Little change from examination three weeks earlier is noted. No significant widening of the ankle mortise noted. IMPRESSION: 1. Healed distal fibular fracture with sideplate in place and healed oblique fracture of the distal tibia with AP screw internally fixing old posterior malleolar fracture. 2. Internal fixation of the medial malleolus with two longitudinal screws extending into the tibia with residual lucency at the fracture site consistent with nonunion or incomplete bony union. Electronically signed by: Chris Rodney MD 03/29/2019 9:[address] [facility]
--- NOTE | 2019-03-29 09:22 | RAD ---
EXAM DESCRIPTION: Tibia/Fibula,Left CLINICAL HISTORY: 38 years Female, PAIN COMPARISON: None. FINDINGS: Two views left leg demonstrate the region of the knee as well as the proximal and mid shaft of the tibia unremarkable. Orthopedic hardware and healed fractures involving the distal tibia with fixation of the medial malleolus that appears incompletely healed is noted. No additional or new injuries noted. IMPRESSION: Intact tibia and fibula above the level of previous ankle repair. Electronically signed by: Chris Rodney MD 03/29/2019 9:20 AM [facility]
== END ==
LOC: RAD 07:50
PROVIDERS: ATTEND Orthopaedic Surgery
DX: S82.392D Other fracture of lower end of left tibia, subsequent encounter for closed fracture with routine healing (principal); Z98.890 Other specified postprocedural states

== ENCOUNTER 2019-12-05 06:14 | Day surgery (SDC) | payer SELFPAY ==
[2019-12-05] MEDS ORDERED: ONDANSETRON INJ 4 MG/2 ML VIAL IV ONE (06:41)
[2019-12-05] MEDS ORDERED: SODIUM CHLORIDE 0.9% 1000ML 1,000 ML IVS ONE ×2 (06:43→08:01)
[2019-12-05] MEDS ORDERED: PROPOFOL 200 MG/20 ML VIAL IV ONE (07:00)
[2019-12-05] MEDS ORDERED: LIDOCAINE 1% 10 ML VIAL INJ ONE (07:00)
[2019-12-05] MEDS ORDERED: ONDANSETRON INJ 4 MG/2 ML VIAL ONE (07:00)
[2019-12-05] MEDS ORDERED: DEXAMETHASONE INJ 10 MG/ML VIAL ONE (07:00)
[2019-12-05] MEDS ORDERED: MORPHINE SULFATE INJ 10 MG/ML VIAL IV ONE ×2 (07:18→08:03)
[2019-12-05] MEDS ORDERED: PROMETHAZINE HCL INJ 25 MG in SODIUM CHLORIDE 0.9% 50ML 50 ML IVPB ONE (07:18)
--- NOTE | 2019-12-05 07:21 | ED.PDOC ---
History of Present Illness - General Chief Complaint: Abdominal Pain Time Seen by Provider: 12/05/19 07:13 Information Source: patient, RN notes reviewed, Vital Signs reviewed, family Exam Limitations: no limitations - History of Present Illness Initial Comments: Patient is a 39-year-old female who presents to ED for diffuse, sharp abdominal pain that began at 8 PM last night. States she has vomited twice and had diarrhea. She denies fever, blood in stool, dysuria or any recent sick contacts. She has had previous C-sections and hysterectomy. Review of Systems - Review of Systems Constitutional: Denies: chills, fever, weakness EENTM: Denies: nose congestion, throat pain Cardiology: Denies: chest pain, palpitations, syncope Gastrointestinal/Abdominal: States: abdominal pain, diarrhea, nausea, vomiting Genitourinary: Denies: dysuria, frequency Musculoskeletal: Denies: back pain, neck pain Skin: States: no symptoms reported Neurological: Denies: headache, paresthesia All other Systems: Reviewed and Negative Past Medical History (General) - Patient Medical History Hx Seizures: Yes Hx Stroke: Yes Hx Dementia: No Hx Asthma: No Hx of COPD: No Hx Cardiac Disorders: No Hx Congestive Heart Failure: No Hx Pacemaker: No Hx Hypertension: No Hx Thyroid Disease: No Hx Diabetes: Yes Hx Gastroesophageal Reflux: No Hx Renal Disease: No Hx Cancer: No Hx of HIV: No Hx Hepatitis C: No Hx MRSA: Yes MRSA Source:: Skin Surgical History: Hysterectomy - Vaccination History Hx Tetanus, Diphtheria Vaccination: No Hx Influenza Vaccination: Yes Hx Pneumococcal Vaccination: No - Social History Hx Tobacco Use: Yes - Pack a day Hx Chewing Tobacco Use: No Hx Alcohol Use: No Hx Substance Use: No Hx Substance Use Treatment: No Hx Depression: No Feels Threatened In Home Enviroment: No Feels Threatened In a Relationship: No Hx Physical Abuse: No Hx Emotional Abuse: No Hx Suspected Abuse: No - Female History Patient is a Female of Child Bearing Age (10 -59 yrs old): Yes Patient : No - Triage Comment ED Triage Comment: The patient was in obvious discomfort and was holding her abdomen. She rated her pain a 10 on the pain scale and denied nausea at the time of assessment. She did not appear in distress and was able to find a position of comfort on her right side. Family Medical History - Family History Mother Family History: No Known Living Status: Still Living Physical Exam - Physical Exam General Appearance: Alert, No apparent distress, Other - resting comfortably on bed Eyes, Ears, Nose, Throat Exam: normal ENT inspection Neck: non-tender, full range of motion, supple Respiratory: chest non-tender, lungs clear, normal breath sounds, no respiratory distress Cardiovascular/Chest: regular rate, rhythm, no murmur Gastrointestinal/Abdominal: other - Soft. Mild tender to palpation in bilateral lower quadrants. No guarding or rigidity. Back Exam: no CVA tenderness, no vertebral tenderness Extremity: normal range of motion, non-tender, no pedal edema Neurologic: no motor/sensory deficits, alert, normal mood/affect Skin Exam: normal color, warm/dry Progress - Progress Progress: 12/05/19 07:22 Patient presents the ED with 12-hour history of diffuse abdominal pain, nausea, vomiting and diarrhea. Differential diagnosis includes appendicitis, biliary colic, colitis, diverticulitis, viral gastroenteritis, bowel obstruction, UTI 12/05/19 08:02 D/W Dr. Zhong. Recommend Zosyn and admit to medicine D/W Tawnya Garcia hospitalist, will admit. 12/05/19 08:08 Patient presents with onset of lower abdominal pain at 8 PM last night with nausea and vomiting. On exam she is tender to palpation in bilateral lower quadrants. Labs show elevated white blood cell count of 13,000. Vital signs have been stable. CT performed to evaluate for appendicitis versus colitis versus other cause of her pain and shows acute nonperforated appendicitis. I have discussed with general surgeon and will start IV antibiotics and admit for surgical evaluation. I have discussed findings and plan of care with patient who agrees. Pain and nausea controlled with IV medications in ED. - Results/Orders Results/Orders: CT Abd/Pelvis FINDINGS: Chest: Partially visualized lung bases are clear. Abdomen/Pelvis: Liver:The liver is normal in size and contour. There is no focal hepatic abnormality. No intrahepatic bile duct dilatation. Gallbladder:The gallbladder is not overly distended. It has a normal thin wall. No gallstones are present. The common bile duct is nondilated. Pancreas:Within normal limits Spleen:Normal size. No abnormality. Right kidney:No hydronephrosis. No focal lesion. Left kidney:No hydronephrosis. No focal lesion. Adrenal glands:Within normal limits Vascular structures:Abdominal aorta is normal in caliber. Lymph nodes: No enlarged nodes. Bowel: The stomach is nondistended. Large and small bowel are normal in caliber. There is a dilated appendix measuring 1.1 cm in diameter. It is thick-walled and fluid-filled. There is an appendicolith at the base. No evidence of perforation or abscess. No significant inflammatory changes adjacent to the appendix, though there is some ascending colon. Appendix: As above. Fluid collections: No free intraperitoneal fluid or air. Bones: No acute bone findings. Lumbar spine and pelvic bones are normal in appearance. Bladder: Unremarkable. Pelvis: No pelvic mass or adenopathy. IMPRESSION: Acute appendicitis without perforation or abscess. 12/05/19 07:00 EKG STAT 12/05/19 07:24 Hold Metformin x 48Hrs [id number] 12/05/19 08:01 Sodium Chloride 0.9% 1000ML [Ns 1000 ml] 1,000 ml IVS ONCE 12/05/19 08:03 Piperacillin/Tazobactam [Zosyn] 4.5 gm Sodium Chloride 0.9% 100Ml [NS (NACL 0.9%) 100ml] 100 ml IVPB ONCE 12/05/19 08:05 NPO per Nursing ONCE 12/05/19 Lunch NPO Diet [Nothing Per Oral] Laboratory Results - last 24 hr 12/05/19 12/05/19 12/05/19 06:44 06:44 07:40 WBC 13.1 H RBC 4.91 Hgb 16.2 H Hct 47.4 H MCV 96.4 MCH 33.0 H MCHC 34.2 RDW 12.8 Plt Count 228 MPV 9.3 Absolute Neuts (auto) 9.90 H Absolute Lymphs (auto) 1.80 Absolute Monos (auto) 1.10 H Absolute Eos (auto) 0.30 Absolute Basos (auto) 0.10 Neutrophils % 75.8 Lymphocytes % 13.4 L Monocytes % 8.2 Eosinophils % 2.1 Basophils % 0.5 Sodium 139 Potassium 3.9 Chloride 107 Carbon Dioxide 22 Anion Gap 13.9 BUN 10 Creatinine 0.87 BUN/Creatinine Ratio 11.5 Random Glucose 97 Serum Osmolality 276.5 Calcium 8.7 Total Bilirubin 0.7 AST 16 ALT 12 Alkaline Phosphatase 100 Serum Total Protein 6.5 Albumin 4.1 Globulin 2.4 Albumin/Globulin Ratio 1.7 Urine Color Yellow Urine Appearance Clear Urine pH 5.5 Ur Specific [place] 1.025 Urine Protein Negative Urine Glucose (UA) Negative Urine Ketones Trace Urine Blood Small H Urine Nitrite Negative Urine Bilirubin Negative Urine Urobilinogen 0.2 Ur Leukocyte Esterase Negative Urine RBC 1-3 Urine WBC 0-1 Ur Epithelial Cells 5-10 Urine Bacteria 0 Urine Mucus Large Departure - Departure Clinical Impression: Lower abdominal pain, Non-intractable vomiting with nausea Acute appendicitis Qualifiers: Acute appendicitis type: unspecified acute appendicitis type Qualified Code(s): K35.80 - Unspecified acute appendicitis Time of Disposition: 08:07 Disposition: Admit Patient Condition: Fair Departure Forms: ED Discharge - Pt. Copy, Patient Portal Self Enrollment Instructions: DI for Abdominal Pain-Adult Referrals: LISSETH SANCHEZ MD [Primary Care Provider] - 1-2 Weeks Home Medications: Ambulatory Orders Insulin Infusion Pump 1 unit IV DAILY 12/19/14 Lamotrigine [Lamictal] 100 mg PO BEDTIME 12/19/14 Gabapentin [Neurontin] 300 mg PO TID 06/03/17 Insulin Lispro [Humalog] 0 unit SC ACHS PRN 06/05/17 Acetaminophen W/ Codeine [Tylenol W/ CODEINE #3] 1 ea PO Q4HR PRN #30 11/19/18 Aspirin [Aspirin EC] 81 mg PO DAILY 11/19/18 Atorvastatin Calcium [Lipitor] 20 mg PO BEDTIME 11/19/18 Estradiol 2 mg PO DAILY 11/19/18 Meloxicam 15 mg PO BEDTIME 11/19/18 Decision To Admit - Decistion To Admit Decision to Admit Date: 12/05/19 Decision to Admit Time: 08:06
--- NOTE | 2019-12-05 07:51 | CT ---
EXAM DESCRIPTION: Abdomen/Pelvis w/Contrast RadLex: CT ABDOMEN PELVIS WITH IV CONTRAST CLINICAL HISTORY: 39 years Female; lower abd pain, vomiting, MAIN TECHNIQUE: CT of the abdomen and pelvis using intravenous contrast.. No oral contrast. All CT scans at this facility use dose modulation, iterative reconstruction, and/or weight based dosing when appropriate to reduce radiation dose to as low as reasonably achievable. COMPARISON: None. FINDINGS: Chest: Partially visualized lung bases are clear. Abdomen/Pelvis: Liver:The liver is normal in size and contour. There is no focal hepatic abnormality. No intrahepatic bile duct dilatation. Gallbladder:The gallbladder is not overly distended. It has a normal thin wall. No gallstones are present. The common bile duct is nondilated. Pancreas:Within normal limits Spleen:Normal size. No abnormality. Right kidney:No hydronephrosis. No focal lesion. Left kidney:No hydronephrosis. No focal lesion. Adrenal glands:Within normal limits Vascular structures:Abdominal aorta is normal in caliber. Lymph nodes: No enlarged nodes. Bowel: The stomach is nondistended. Large and small bowel are normal in caliber. There is a dilated appendix measuring 1.1 cm in diameter. It is thick-walled and fluid-filled. There is an appendicolith at the base. No evidence of perforation or abscess. No significant inflammatory changes adjacent to the appendix, though there is some ascending colon. Appendix: As above. Fluid collections: No free intraperitoneal fluid or air. Bones: No acute bone findings. Lumbar spine and pelvic bones are normal in appearance. Bladder: Unremarkable. Pelvis: No pelvic mass or adenopathy. IMPRESSION: Acute appendicitis without perforation or abscess. Electronically signed by: Juan Larson MD 12/05/2019 7:49 AM CDT
[2019-12-05] MEDS ORDERED: PIPERACILLIN/TAZOBACTAM 4.5 GM in SODIUM CHLORIDE 0.9% 100ML 100 ML IVPB ONE (08:03)
[2019-12-05] MEDS ORDERED: BUPIVACAINE 0.5% W/EPI 30 ML VIAL INJ ONE ×2 (09:34→10:34)
[2019-12-05] MEDS ORDERED: SUGAMMADEX SODIUM 200 MG/2 ML VIAL IV ONE (10:30)
[2019-12-05] MEDS ORDERED: MIDAZOLAM INJ 2 MG/2 ML VIAL ONE (10:30)
[2019-12-05] MEDS ORDERED: fentaNYL CITRATE INJ 50 MCG/ML AMP ONE (10:30)
[2019-12-05] MEDS ORDERED: ROCURONIUM BROMIDE 10 MG/ML VIAL ONE (10:31)
--- NOTE | 2019-12-05 11:30 | OP ---
DATE OF PROCEDURE: 12/05/19 PREOPERATIVE DIAGNOSIS: Acute appendicitis. POSTOPERATIVE DIAGNOSIS: Acute appendicitis. PROCEDURE: Laparoscopic appendectomy. SURGEON: Christiano Zhong MD ANESTHESIA: General and local. FINDINGS: Acute suppurative appendix, nonperforated. COMPLICATIONS: None. SPECIMEN: Appendix. PLAN: Discharge. INDICATION: As stated. PROCEDURE: General anaesthesia was induced. She was prepped and draped in sterile fashion. 0.5% Marcaine with epinephrine was used at all incision sites. While maintaining upward traction, a lavern was made in the base of the umbilicus. A Veress needle was introduced. There was free flow of fluid into the peritoneal cavity which was insufflated to an appropriate level with CO2 gas. A 5 mm trocar was placed followed by the camera. There was no evidence of bleeding or bowel injury. The patient was positioned and the suprapubic and right lower quadrant ports were placed. The appendix was easily identified. It was grasped and retracted superiorly. Some lateral adhesions were taken down. The connelly load was then used across the mesoappendix at the base and the base was taken with the blue load. It was removed without difficulty. The staple line and dissected was examined. There was no evidence of bleeding. The suprapubic fascia was then closed with #0 Vicryl. The area was airtight and non-bleeding. The remaining trocars were removed and the abdomen was desufflated. The wounds were closed with Monocryl and dressing applied. She was awakened and taken to Recovery to be discharged. #[id number] cc: Nikhil Pham MD [facility]
--- NOTE | 2019-12-05 11:36 | HP ---
CHIEF COMPLAINT: Acute appendicitis. HISTORY OF PRESENT ILLNESS: This is a 39-year-old woman who presented to the Emergency Room with pain since last night with nausea and some loose stools. She denies any fever, no frequency, dysuria or hematuria. No known sick contacts. PAST MEDICAL HISTORY: 1. Diabetes. 2. No history of seizures. MEDICATIONS: Please see the list, plus she does have an insulin pump. FAMILY HISTORY: Noncontributory. SOCIAL HISTORY: The patient does smoke. She denies any drug use. REVIEW OF SYSTEMS: As above. Otherwise: CONSTITUTIONAL: No fevers, no chills. HEENT: No headache, visual changes, sore throat. RESPIRATORY: No cough or wheeze. CARDIOVASCULAR: No chest pain or palpitations. GASTROINTESTINAL: As above. PHYSICAL EXAMINATION: VITAL SIGNS: Heart rate 75, nontachycardic. Blood pressure normal. GENERAL: The patient is conscious, awake, alert and well-oriented, in no distress. HEENT: Normocephalic, atraumatic. Pupils equal and reactive. Sclerae anicteric. Oral mucosa is moist. NECK: Supple. No masses. CHEST: Clear and equal bilaterally. No wheezing or crackles. HEART: Regular rate and rhythm. No murmurs, rubs or gallops. ABDOMEN: Soft. There is right lower quadrant point tenderness. No evidence of diffuse peritonitis. No CVA tenderness. EXTREMITIES: No cyanosis, clubbing or edema. LABORATORY: White blood cell count 13, hematocrit 47, platelet count 228. CMP is normal. Sugar is 108. Urinalysis shows no evidence of acute infection. RADIOLOGY: CT confirms acute appendicitis. IMPRESSION: 1. Acute appendicitis. PLAN: The patient was consented for laparoscopic appendectomy. #[id number] [facility]
[2019-12-05] MEDS ORDERED: LACTATED RINGERS 1,000 ML IVS ONE (12:00)
[2019-12-05 12:55] VITALS: BP 108/68; TEMP 98.1; O2SAT 99
== END 2019-12-05 12:45 | disposition home health service (06) ==
LOC: ER 06:14 → EDSTATUS 08:26 → ER 10:35
PROVIDERS: ATTEND Emergency Medicine
DX: K35.80 Unspecified acute appendicitis (principal); E11.9 Type 2 diabetes mellitus without complications; F17.200 Nicotine dependence, unspecified, uncomplicated; Z79.899 Other long term (current) drug therapy; Z96.41 Presence of insulin pump (external) (internal); Z88.5 Allergy status to narcotic agent
CPT/HCPCS: 00840; 36415; 36416; 44970; 74177; 80053; 81001; 82948; 85025; 93005; A4216; J1100; J2250; J2270; J2405; J2543; J2550; J3010; J3490; J7030; J7050; J7120

== ENCOUNTER → 2020-02-13 | Outpatient (CLI) | payer SELFPAY | LOC: LAB.O 11:07 | PROVIDERS: ATTEND Family Medicine Sports Medicine | DX: R53.82 Chronic fatigue, unspecified (principal); R23.3 Spontaneous ecchymoses ==